=== PATIENT | male | born 1945 | race Caucasian/White ===

== ENCOUNTER 2017-02-04 10:55 | Emergency (ER) | payer OTHER ==
--- NOTE | 2017-02-04 11:26 | PDOC ---
History of Present Illness - General Chief Complaint: Lightheaded Stated Complaint: DIZZINESS Time Seen by Provider: 02/04/17 11:11 - History of Present Illness Initial Comments: 02/04/17 13:11 Chief complaint: Vertigo History of present illness: Patient has noted intermittent vertigo starting this morning. There is the sensation that the room is spinning. It is aggravated by change of position and head movement. There is mild nausea but no vomiting. He has had recent nasal congestion, URI. Review of systems: No other visual or focal neurologic symptoms, unsteadiness of gait, chest pain, shortness of breath, abdominal pain, vomiting, diarrhea, urinary tract symptoms. All other systems reviewed and found to be negative Past medical history: Coronary artery disease with multiple stents, most recently 2 years ago. [place] at that time. Stable since then. Vertigo once before in the distant past, completely resolved. No CVA or TIA. Social history: Fully active and without disability. No tobacco alcohol or nonprescription drugs Family history: Reviewed and noncontributory Physical exam: Alert and oriented well-developed well-nourished no acute distress cheerful and cooperative Afebrile, vital signs normal PERRLA 4 mm, fundi benign with sharp disc margins good central venous pulsations no hemorrhages or exudates. ENT clear except for mild nasal congestion. No sinus tenderness to palpation Neck supple without bruit mass or nodes Lungs clear CV S1 and S2 normal without murmur rub or gallop pulses full and symmetric no JVD or edema no bruits Abdomen benign Neurological C2 to 12 intact. Strength full and symmetric. No focal sensory or motor deficits. Gait stable and unimpaired. There is mild transient vertigo which can be reduced with rapid head movement, but the patient gait is stable and there is no ataxia Impression: Acute labyrinthitis associated with URI. No sign of other neurologic complications Plan: Symptomatic treatment with meclizine, rest, fluids, and follow-up as directed. Past History - Past Medical History Allergies/Adverse Reactions: Allergies Allergy/AdvReac Type Severity Reaction Status Date / Time fish derived Allergy Intermediate Verified 02/04/17 11:37 Iodinated Contrast- Oral and Allergy Intermediate Swelling Verified 02/04/17 11: 37 IV Dye shellfish derived Allergy Intermediate Swelling Verified 02/04/17 11:37 Home Medications: Ambulatory Orders Aspirin [Aspirin EC] 81 mg PO DAILY 02/04/17 Atorvastatin Ca [Lipitor] 40 mg PO HS 02/04/17 Carvedilol [Coreg -] 6.25 mg PO BID 02/04/17 Clopidogrel Bisulfate [Plavix -] 75 mg PO DAILY 02/04/17 Meclizine HCl 25 - 50 mg PO TID PRN #20 tablet 02/04/17 Ubidecarenone/Vit E Acet [Co Q-10 100 mg Softgel] 1 each PO HS 02/04/17 *DC/Admit/Observation/Transfer Diagnosis at time of Disposition: Acute labyrinthitis Qualifiers: Laterality: unspecified laterality Qualified Code(s): H83.09 - Labyrinthitis, unspecified ear - Discharge Dispostion Disposition: HOME Condition at time of disposition: Improved Admit: No - Prescriptions Prescriptions: Meclizine HCl 25 - 50 mg PO TID PRN #20 tablet PRN Reason: Vertigo - Referrals Referrals: Kj Miguel [Primary Care Provider] - 3 days - Patient Instructions Printed Discharge Instructions: DI for Vertigo - Post Discharge Activity
[2017-02-04 11:59] VITALS: BP 153/90; PULSE 66; TEMP 97.6; BMI 33.0
[2017-02-04] MEDS ORDERED: MECLIZINE HCL 25 MG TABLET (FP) PO ONE (12:30)
[2017-02-04] MEDS ORDERED: MECLIZINE HCL 25 MG TABLET (FP) ONE (12:35)
== END 2017-02-04 13:40 | disposition home or self-care (01) ==
LOC: FER 10:55
DX: H83.09 Labyrinthitis, unspecified ear (principal)
CPT/HCPCS: 99282-25